=== PATIENT | male | born 1990 | race Hispanic/Latino ===

== ENCOUNTER 2024-03-01 15:24 | Emergency (ER) | payer OTHER ==
[~2024-03-01] VITALS: Ht 177.8 cm; Wt 104.3 kg
[2024-03-01] MEDS: FAMOTIDINE 20MG VIAL IV STA (17:18)
[2024-03-01] MEDS: DiphenhydrAMINE HCL 50 MG/ML VIAL IV STA (17:18)
[2024-03-01] MEDS: SOLU-MEDROL 125MG VIAL IVP STA (17:21)
[2024-03-01] MEDS: MORPHINE 2 MG SYG IVP STA (17:23)
[2024-03-01 18:07] VITALS: BP 126/78; PULSE 78; RESP 16; O2SAT 97
== END 2024-03-01 18:11 | disposition home or self-care (01) ==
LOC: EDH 15:24
DX: S52.92XA Unspecified fracture of left forearm, initial encounter for closed fracture (principal); W19.XXXA Unspecified fall, initial encounter; Y93.02 Activity, running; Y92.89 Other specified places as the place of occurrence of the external cause; Y99.0 Civilian activity done for income or pay
CPT/HCPCS: 99284; 96374; 96375; 73100; 73070; 73090; J1200; J3490; J2270; J2919; 29125